=== PATIENT | male | born 1975 | race Asian ===

== ENCOUNTER 2019-01-23 00:42 | Inpatient (IN) | payer OTHER ==
[~2019-01-23] VITALS: Ht 157.5 cm; Wt 63.5 kg
--- NOTE | 2019-01-23 00:44 | NUR ---
[facility] TO ER BED 10
[2019-01-23 00:50] VITALS: BP 94/56
--- NOTE | 2019-01-23 00:50 | NUR ---
ASSUMED TEMPORARY CARE OF PT FOR PRIMARY RN WHO IS ON BREAK. C/O N/V, GENERAL WEAKNESS X 1 DAY. PT W/ RECENT EPISODES OF HEMATEMESIS AND BLACK STOOLS OVER THE LAST 2 DAYS. PT APPEARS EXTREMELY PALE. BLOOD GLUCOSE = 596 PER EMS. ON ARRIVAL TO ER = 591. AAOX4 WITH EVEN AND STEADY GAIT; PATIENT STATES PAIN OF 0/10; VSS; PATIENT POSITIONED FOR COMFORT; HOB ELEVATED; BEDRAILS UP X2; BED DOWN. ER MD MADE AWARE OF PT STATUS. WILL CONTINUE TO MONITOR.
[2019-01-23] MEDS ORDERED: NACL 0.9% 1,000 ML IV SCH (00:58)
[2019-01-23] MEDS ORDERED: ONDANSETRON 4 MG/2 ML VIAL IVP ONE (01:00)
[2019-01-23] MEDS ORDERED: PANTOPRAZOLE 40 MG INJ VIAL IVP ONE (01:00)
--- NOTE | 2019-01-23 01:30 | NUR ---
PT HAS BEEN VOMITING UP BROWN SUBSTANCE. ER MADE AWARE.
[2019-01-23 01:36] LABS: BASOPHILS % (AUTO) 0.3 % (0.0-2.0); EOSINOPHILS # (AUTO) 0.1 K/uL (0-0.4); EOSINOPHILS % (AUTO) 0.8 % (0.0-4.0); HEMATOCRIT 25.9 % (36-52); HEMOGLOBIN 8.5 g/dL (12.0-18.0); LYMPHOCYTES # (AUTO) 2.5 K/uL (2.0-11.5); LYMPHOCYTES % (AUTO) 21.2 % (20.5-51.1); MEAN CORPUSCULAR HEMOGLOBIN 28 pg (27-31); MEAN CORPUSCULAR HGB CONC 33 g/dL (33-37); MEAN CORPUSCULAR VOLUME 84.1 fL (80-94); MONOCYTES # (AUTO) 0.6 K/uL (0.8-1.0); MONOCYTES % (AUTO) 5.1 % (1.7-9.3); NEUTROPHILS # (AUTO) 8.4 K/uL (1.8-7.7); NEUTROPHILS % (AUTO) 72.6 % (42.2-75.2); PLATELET COUNT (AUTO) 242 K/uL (140-450); RED BLOOD CELL COUNT(AUTO) 3.08 MIL/uL (4.20-6.10); WHITE BLOOD COUNT (AUTO) 11.6 K/uL (4.8-10.8)
--- NOTE | 2019-01-23 02:00 | NUR ---
PT IS SLEEPING IN ROOM. PT VSS
[2019-01-23 02:04] LABS: ALBUMIN 2.8 g/dL (3.4-5.0); ANION GAP 14.4 (8-16); CARBON DIOXIDE 24.3 mmol/L (21-32); CHLORIDE 98 mmol/L (98-107); CREATININE 1.2 mg/dL (0.7-1.3); GFR ARICAN-AMERICAN 86 mL/min (>90); POTASSIUM 4.7 mmol/L (3.5-5.1); SODIUM SERUM 132 mmol/L (136-145); TOTAL BILIRUBIN 0.4 mg/dL (0.0-1.0); UREA NITROGEN, BLOOD 56 mg/dL (7-18)
[2019-01-23 02:09] LABS: PROTHROMBIN TIME 10.4 secs (10.8-13.4)
--- NOTE | 2019-01-23 02:15 | NUR ---
PT HAD SOME VOMITING. ERMD MADE AWARE
[2019-01-23 02:26] LABS: GLUCOSE 613 mg/dL (74-106)
[2019-01-23] MEDS ORDERED: NACL 0.9% 1,000 ML IV ONE (02:30)
--- NOTE | 2019-01-23 02:30 | NUR ---
PT VITALS STABLE. PT IS SLEEPING. PT STATED THAT HE FEELS "REALLY TIRED". ER MADE AWARE.
[2019-01-23] MEDS ORDERED: INSULIN REGULAR, HUMAN 100 UNIT/ML VIAL IVP ONE (02:50)
[2019-01-23 02:53] LABS: ASPARTATE AMINOTRANSFERASE < 5 U/L (15-37)
[2019-01-23 03:01] LABS: ACETONE, SERUM NEGATIVE (NEGATIVE)
--- NOTE | 2019-01-23 03:25 | NUR ---
PT IS SLEEPING, VITALS STABLE.
--- NOTE | 2019-01-23 04:30 | NUR ---
PT SITTING UP IN BED, VSS.
--- NOTE | 2019-01-23 05:10 | NUR ---
PT WAS ABLE TO URINATE AT BEDSIDE. PT TOLERATED WELL.
--- NOTE | 2019-01-23 05:37 | NUR ---
PT SLEEPING IN BED, COMFORT MEASURES OFFERED PT TOLERATED WELL.
[2019-01-23] MEDS: LACTATED RINGERS 1,000 ML IV SCH ×2 (05:53→16:28)
[2019-01-23] MEDS ORDERED: MORPHINE SULFATE 2 MG/ML SYR IVP PRN (05:55)
[2019-01-23] MEDS ORDERED: LORazepam 1 MG TAB PO PRN (05:55)
[2019-01-23] MEDS ORDERED: DEXTROSE 50% 50 ML SYR IVP PRN (05:55)
[2019-01-23] MEDS ORDERED: INSULIN LANTUS 100 UNITS/ML 10 ML VIAL SUBQ SCH (05:55)
[2019-01-23] MEDS ORDERED: LORazepam 2 MG/ML VIAL IVP PRN (05:55)
[2019-01-23] MEDS ORDERED: ONDANSETRON 4 MG/2 ML VIAL IVP PRN (05:55)
--- NOTE | 2019-01-23 06:15 | NUR ---
PT LYING IN BED, VSS. AT BEDSIDE.
[2019-01-23 06:38] LABS: HEMATOCRIT 26.5 % (36-52); HEMOGLOBIN 8.9 g/dL (12.0-18.0)
--- NOTE | 2019-01-23 07:00 | NUR ---
PT IS LYING IN BED, AT BEDSIDE. COMFORT MEASURES OFFERED. PT TOLERATED WELL. PENDING ADMIT.
--- NOTE | 2019-01-23 07:11 | NUR ---
GAVE REPORT TO MESFIN AND TALITA. PT CHIARA.
--- NOTE | 2019-01-23 07:26 | NUR ---
resting with ou closed, no s/s resp distress at this time. remains at bedside pt denies pain will continue to observe for changes.
--- NOTE | 2019-01-23 07:27 | NUR ---
PT A&OX4, RESTING QUIETLY WITH AT BEDSIDE. PT PALE. BREATHING EVEN AND UNLABORED. PT REQUESTING WATER, MADE AWARE THAT HE IS NPO. PT DENIES PAIN. STS "I'M HUNGRY" AND "I'M THRISTY." NO N/V. AWAITING TRANSFER TO MED/SURG.
[2019-01-23] MEDS: BLOOD GLUCOSE MONITORING 1 DEV DEV FS SCH ×4 (07:30→21:48)
--- NOTE | 2019-01-23 08:00 | NUR ---
RECEIVED PT FROM THE ED NURSE. PT IS ACCOMPANIED BY HIS . PT IS HUNGARIAN AND AMHARIC SPEAKING. PT IS A&O X 4, NO ACUTE DISTRESS NOTED. PT CURRENTLY NPO. C/O SOME ABD DISCOMFORT. TWO IV SITES NOTED: RAC 20 G, AND LAC 20 G. PT ON ROOM AIR, SKIN INTACT. CALL LIGHT GIVEN WITHIN REACH. WILL CONTINUE TO MONITOR.
--- NOTE | 2019-01-23 08:06 | NUR ---
Pt transferred to Med/Surg via [facility] ROOM 111B, REPORT GIVEN TO ELIUD DONNELLY
[2019-01-23 08:10] VITALS: BP 110/64
--- NOTE | 2019-01-23 08:25 | NUR ---
PATIENT HAS BEEN SCREENED AND CATEGORIZED HIGH NUTRITION RISK. PATIENT WILL BE SEEN WITHIN 1-2 DAYS OF ADMISSION. 01/23/19-01/24/[address]
[2019-01-23] MEDS: THIAMINE 100 MG TAB PO SCH (10:27)
[2019-01-23] MEDS: MULTIVITAMIN 1 TAB PO SCH (10:27)
[2019-01-23] MEDS: FOLIC ACID 1 MG TAB PO SCH (10:27)
[2019-01-23] MEDS: PANTOPRAZOLE 40 MG INJ VIAL IVP SCH ×2 (10:28→21:40)
--- NOTE | 2019-01-23 10:48 | NUR ---
RECEIVED CALL FROM DR CALLOWAY REGARDING PT TO HAVE EGD THIS MORNING. DR CALLOWAY ASKED TO GET CONSENT FROM PT. CONSENT FOR EGD OBTAINED. PT HAS BEEN NPO SINCE ADMISSION.
[2019-01-23] MEDS ORDERED: MIDAZOLAM 2 MG/2 ML VIAL ONE (10:57)
[2019-01-23] MEDS ORDERED: fentaNYL 0.05 MG/ML VIAL ONE (10:57)
--- NOTE | 2019-01-23 11:00 | NUR ---
PT OFF THE UNIT FOR EGD WITH DR CALLOWAY. FAMILY STAYED IN ROOM.
[2019-01-23] MEDS: MIDAZOLAM 2 MG/2 ML VIAL IVP ONE ×2 (11:51→12:40)
[2019-01-23] MEDS: fentaNYL 0.05 MG/ML VIAL IVP ONE ×2 (11:52→12:40)
--- NOTE | 2019-01-23 12:25 | NUR ---
PT BACK IN ROOM FROM EGD. VS STABLE. NO C/O PAIN, NO S/S DISTRESS NOTED.
[2019-01-23 12:30] VITALS: BP 104/66
[2019-01-23] MEDS: INSULIN LISPRO SLIDING SCALE 100 UNITS/ML VIAL SUBQ PRN ×3 (12:46→21:48)
--- NOTE | 2019-01-23 14:51 | NUR ---
01/23/19 RD INITIAL ASSESSMENT COMPLETED PLEASE REFER TO NUTRITION ASSESSMENT UNDER CARE ACTIVITY FOR ESTIMATED NUTRITIONAL NEEDS. 1. RECOMMEND CCHO [address] PROVIDED NUTRITION EDUCATION FOR A CONSISTENT CARBOHYDRATE DIET. PT ACCEPTED 3. RD TO FOLLOW-UP 5-7 DAYS, LOW RISK IESHA LUNA, RD
[2019-01-23 16:00] VITALS: BP 95/55
--- NOTE | 2019-01-23 16:20 | NUR ---
PT SEEN BY DR TATE
[2019-01-23] MEDS: FERROUS SULFATE 325 MG TABEC PO SCH (16:39)
[2019-01-23] MEDS: INSULIN LANTUS 100 UNITS/ML 10 ML VIAL SUBQ SCH (16:39)
--- NOTE | 2019-01-23 17:15 | NUR ---
CLARIFIED WITH DR TATE THAT PT IS NOT GOING TO DISCHARGE TONIGHT. ALSO, DR TATE WAS NOTIFIED THAT PT'S H. PYLORI UREASE TEST IS POSITIVE. WILL ALSO NOTIFY DR CALLOWAY.
--- NOTE | 2019-01-23 17:35 | NUR ---
PAGED DR CALLOWAY, NOTIFIED HIM ABOUT PT'S H. PYLORI POSITIVE RESULT. DR CALLOWAY TELEPHONE ORDERED ORAL AMOXICILLIN AND BIAXIN TO BE STARTED TOMORROW, 01/24. MEDICATION ADMINISTRATION VALUES PUT IN PER DR. CALLOWAY'S ORDERS.
[2019-01-23] MEDS: metFORMIN 500 MG TAB PO SCH (17:44)
--- NOTE | 2019-01-23 19:30 | NUR ---
PT ENDORSED TO PEACE OFFICER IN STABLE CONDITION.
--- NOTE | 2019-01-23 19:30 | NUR ---
RECEIVED BEDSIDE REPORT FROM DAY SHIFT RN, PATIENT IN BED, AAOX4, IV IN RIGHT AC 20 G, IV IN LEFT AC 20 G INFUSING LR AT 100 ML/HR. NO SIGNS OF ACUTE DISTRESS, DENIES PAIN, EXPLAINED PLAN OF CARE, WILL CONTINUE TO MONITOR.
[2019-01-23 20:00] VITALS: BP 109/64
--- NOTE | 2019-01-23 21:38 | NUR ---
DUE MEDICATIONS GIVEN, BG 295 GAVE INSULIN.
[2019-01-23] MEDS: SENNA 8.6 MG TAB PO SCH (21:39)
[2019-01-24] VITALS: BP 111/60
--- NOTE | 2019-01-24 | NUR ---
V/S TAKEN, CALL LIGHT WITHIN REACH, WILL CONTINUE TO MONITOR
[2019-01-24] MEDS: LACTATED RINGERS 1,000 ML IV SCH ×2 (00:26→03:14)
--- NOTE | 2019-01-24 03:19 | NUR ---
STARTED NEW BAG LR INFUSING AT 100 ML/HR
[2019-01-24 03:43] VITALS: BP 121/62
[2019-01-24] MEDS: INSULIN LISPRO SLIDING SCALE 100 UNITS/ML VIAL SUBQ PRN ×3 (05:38→17:08)
[2019-01-24 06:35] LABS: BASOPHILS % (AUTO) 0.4 % (0.0-2.0); EOSINOPHILS # (AUTO) 0.2 K/uL (0-0.4); EOSINOPHILS % (AUTO) 2.4 % (0.0-4.0); LYMPHOCYTES # (AUTO) 2.2 K/uL (2.0-11.5); LYMPHOCYTES % (AUTO) 26.4 % (20.5-51.1); MEAN CORPUSCULAR HEMOGLOBIN 29 pg (27-31); MEAN CORPUSCULAR HGB CONC 34 g/dL (33-37); MONOCYTES # (AUTO) 0.5 K/uL (0.8-1.0); MONOCYTES % (AUTO) 5.8 % (1.7-9.3); NEUTROPHILS # (AUTO) 5.4 K/uL (1.8-7.7); PLATELET COUNT (AUTO) 189 K/uL (140-450); RED BLOOD CELL COUNT(AUTO) 2.34 MIL/uL (4.20-6.10); RED CELL DISTRIBUTION WIDTH 13.3 % (11.6-13.7); WHITE BLOOD COUNT (AUTO) 8.3 K/uL (4.8-10.8)
[2019-01-24] MEDS: BLOOD GLUCOSE MONITORING 1 DEV DEV FS SCH ×3 (06:44→17:06)
--- NOTE | 2019-01-24 06:44 | NUR ---
BG 219 GAVE 4 UNITS
--- NOTE | 2019-01-24 06:45 | NUR ---
BG 219 GAVE 4 UNITS
[2019-01-24 07:15] LABS: ALBUMIN 2.4 g/dL (3.4-5.0); ANION GAP 9.2 (8-16); CARBON DIOXIDE 28.4 mmol/L (21-32); CREATININE 0.9 mg/dL (0.7-1.3); MAGNESIUM 1.6 mg/dL (1.8-2.4); PHOSPHORUS 3.2 mg/dL (2.5-4.9); POTASSIUM 3.6 mmol/L (3.5-5.1); TOTAL BILIRUBIN 0.4 mg/dL (0.0-1.0)
--- NOTE | 2019-01-24 07:35 | NUR ---
ENDORSED PATIENT TO DAY SHIFT NURSE, PATIENT STABLE.
--- NOTE | 2019-01-24 07:40 | NUR ---
RECEIVED PT FROM WATCH INSPECTOR NURSE, PT IS AWAKE AND LYING ON THE BED WITH SIDE RAILS UP AND CALL LIGHT WITHIN REACH, PT HAS AN IV LINE ON THE RT AC G. 20 ON SALINE LOCK AND ON THE LEFT AC G.20 WITH LR INFUSING AT 100ML/HR. PT DENIES PAIN AND NO SOB NOTED. WILL MONITOR PT.
--- NOTE | 2019-01-24 07:54 | NUR ---
CONCHIS FROM LAB CALLED AND REPORTED THE PT'S CRITICAL VALUE FOR HGB WHICH IS 6.7 AND HCT WHICH IS 19.7. WILL INFORM
[2019-01-24 07:55] LABS: HEMATOCRIT 19.7 % (36-52); HEMOGLOBIN 6.7 g/dL (12.0-18.0)
[2019-01-24 08:00] VITALS: BP 106/65
--- NOTE | 2019-01-24 08:06 | NUR ---
PAGED DR. TATE TO INFORM ABOUT THE PT'S CCRITICAL LAB VALUE. AWAITING MD CALL BACK.
[2019-01-24] MEDS: FOLIC ACID 1 MG TAB PO SCH (08:36)
[2019-01-24] MEDS: SENNA 8.6 MG TAB PO SCH (08:36)
[2019-01-24] MEDS: MULTIVITAMIN 1 TAB PO SCH (08:37)
[2019-01-24] MEDS: THIAMINE 100 MG TAB PO SCH (08:37)
[2019-01-24] MEDS: metFORMIN 500 MG TAB PO SCH ×2 (08:37→17:06)
[2019-01-24] MEDS: PANTOPRAZOLE 40 MG INJ VIAL IVP SCH (08:38)
[2019-01-24] MEDS: FERROUS SULFATE 325 MG TABEC PO SCH ×2 (08:38→17:06)
--- NOTE | 2019-01-24 08:40 | NUR ---
PT IS AWAKE AND SEATED ON THE BED, MEDICATIONS WERE GIVEN AND PT TOLERATED IT. WILL MONITOR PT.
[2019-01-24] MEDS ORDERED: AMOXICILLIN 500 MG CAP PO SCH (09:00)
[2019-01-24] MEDS ORDERED: CLARITHROMYCIN 500 MG TAB PO SCH (09:00)
--- NOTE | 2019-01-24 11:05 | NUR ---
DR. CALLOWAY CAME TO THE PT'S ROOM AND SPOKE TO PT, INFORMED MD THAT PT IS REFUSING BLOOD TRANSFUSION AND DR. CALLOWAY SAID THAT IT IS NOT NEEDED ANYMORE.
--- NOTE | 2019-01-24 11:47 | NUR ---
CALLED DR. TATE AND INFORMED MD THAT PT IS REFUSING TO HAVE A BLOOD TRANSFUSION DONE TO HIM DESPITE THE LOW VALUE OF HGB AND HCT. ACKNOWLEDGED.
[2019-01-24 12:00] VITALS: BP 115/70
[2019-01-24] MEDS: INSULIN LANTUS 100 UNITS/ML 10 ML VIAL SUBQ SCH ×2 (12:17→17:00)
[2019-01-24 16:00] VITALS: BP 110/61
--- NOTE | 2019-01-24 17:06 | NUR ---
PT IS AWAKE WITH ON THE BEDSIDE, VITAL SIGNS TAKEN AND IS WITHIN NORMAL LIMIT, BLOOD GLUCOSE CHECK DONE AND RESULT IS 265, LANTUS OF 20 UNITS WAS GIVEN EARLIER AT 1221H 1X DOSE ORDERED BY DR. TATE. PT TOLERATED THE MEDICATIONS AND NO SIGN OF DISTRESS NOTED. WILL MONITOR PT.
--- NOTE | 2019-01-24 19:05 | NUR ---
DISCHARGED PT VIA WHEELCHAIR WITH , DISCHARGED TEACHINGS REGARDING DIABETES MANAGEMENT AND PRESCRIPTION WEER GIVEN AND PT VERBALIZED UNDERSTANDING. IV LINES AND ARM BANDS REMOVED. PT IS STABLE AT THIS TIME.
== END 2019-01-24 19:05 | disposition home or self-care (01) | DRG 377 ==
LOC: MED 00:42 → MTU 06:02
PROVIDERS: ADMIT Hospitalist; ATTEND Hospitalist
PROC: 0DB68ZX Excision of Stomach, Via Natural or Artificial Opening Endoscopic, Diagnostic (ICD-10-PCS; principal; 2019-01-23 10:45)
DX: K25.4 Chronic or unspecified gastric ulcer with hemorrhage (principal); E11.00 Type 2 diabetes mellitus with hyperosmolarity without nonketotic hyperglycemic-hyperosmolar coma (NKHHC); D64.9 Anemia, unspecified; Z79.84 Long term (current) use of oral hypoglycemic drugs
CPT/HCPCS: 36415; 71045; 80053; 82009; 82948; 83036; 83540; 83605; 83735; 84100; 85018; 85025; 85610; 85730; 86677; 86886; 86900; 86901; 87040; 87081; 93005; 96361; 96374; 96375; 99285; C9113; J1815; J2250; J2405; J3010; J7030; J7120; Q0092